=== PATIENT | female | born 1965 | race Caucasian/White ===

== ENCOUNTER 2025-01-26 01:25 | Emergency (ER) | payer BC ==
[~2025-01-26] VITALS: Ht 152.4 cm; Wt 63.2 kg
--- NOTE | 2025-01-26 01:44 | Physician Documentation ---
History of Present Illness General Chief Complaint: See Chief Complaint Stated Complaint: DYSTONIC REACTION Time Seen by MD: 01:44 Primary Medical Doctor: IGGY WU History of Present Illness Initial Comments The patient is a 59-year-old female who states 2 hours ago she started developing involuntary contractions of her upper extremities. Patient states she has recently started on Wegovy. The patient was given a IV fluid as well as a dose of Benadryl in the field she states her symptoms have improved. The patient denies any illicit drug use no recent fevers or chills. Medication Reconciliation Allergies: Coded Allergies: No Known Allergies (Unverified , 01/26/25) Past Medical History Past Medical History: Thyroid (unspecified) Past Surgical History: other Smoking: Non-Smoker Alcohol Use: Occasionally Review of Systems All Other Systems at this time: Reviewed and Negative Physical Exam Physical Exam Vital Signs: Temperature: 98.1, Source: Oral, Heart Rate: 99, Respiratory Rate: 18, BP: 114/73, Pulse Oximetry: 98, Weight: 63.180 Physical Exam VITALS: Reviewed and as above. GENERAL: Alert, no apparent distress. HEENT: Normocephalic, atraumatic, PERRL, EOMI, dry mucosa, no erythema RESPIRATORY: Lungs clear, normal breath sounds, no respiratory distress. CHEST: No accessory muscle use, no retractions CV: Regular rate, rhythm, no edema, no murmur, No: JVD GI: Soft, non-tender, bowels sounds present, no rebound, guarding, or rigidity BACK: No CVA tenderness, or swelling MUSCULOSKELETAL: No deformities, no edema SKIN: Warm and dry, no rash NEURO: Oriented x4, No motor or sensory deficit the patient is having myoclonic jerks of her upper extremities intermittently otherwise she is completely lucid and answering questions she is not lose any consciousness during these episodes PSYCH: Normal mood and affect, no agitation Progress Results/Orders Results/Orders Orders - OHLFS,LONG Hubbard MD Magnesium Sulf-Water 2g/50ml (Magnesium (01/26/25 01:50) Completed Orders - OHLLONG ESPARZA MD BMP (01/26/25 01:48) Cbc/Diff (01/26/25 01:48) MG (01/26/25 01:48) Normal Saline 1000ml (0.9% Sodium Chlori (01/26/25 01:50) Medications Received in ER Medications (Trade) Dose Ordered Sig/Josiah Route PRN Reason Start Time Stop Time Status Last Admin Dose Admin (0.9% sodium chloride (NS) 1000ml IV soln) 1,000 ml ONCE ONCE IVB 01/26/25 01:50 01/26/25 01:51 DC 01/26/25 01:51 1,000 ML Magnesium Sulfate 50 ml @ 25 mls/hr ONCE ONCE IV 01/26/25 01:50 01/26/25 03:49 01/26/25 01:56 25 MLS/HR Vital Signs 01/26/25 01:34 Temp 98.1 Pulse 99 Resp 18 B/P (MAP) 114/73 Pulse Ox 98 Laboratory Tests Test 01/26/25 01:43 White Blood Count 4.5 Red Blood Count 3.82 L Hemoglobin 12.1 Hematocrit 35.2 Mean Corpuscular Volume 92.1 Mean Corpuscular Hemoglobin 31.7 H Mean Corpuscular Hemoglobin Concent 34.4 Red Cell Distribution Width 13.2 Platelet Count 209 Mean Platelet Volume 8.8 Neutrophils (%) (Auto) 43.3 Lymphocytes (%) (Auto) 47.3 Monocytes (%) (Auto) 6.9 Eosinophils (%) (Auto) 1.6 Basophils (%) (Auto) 0.9 Neutrophils # (Auto) 2.0 Lymphocytes # (Auto) 2.1 Monocytes # (Auto) 0.3 Eosinophils # (Auto) 0.1 Basophils # (Auto) 0.0 CBC Comment Sodium Level 143 Potassium Level 3.9 Chloride Level 107 Carbon Dioxide Level 25.7 Anion Gap 10 Blood Urea Nitrogen 6 L Creatinine 0.56 Estimated GFR/1.73 m2 > 90 BUN/Creatinine Ratio 10.7 Glucose Level 105 H Calcium Level 8.9 Magnesium Level 2.2 Albumin 4.4 Chemistry Comments Departure Time of Disposition: 03:07 Disposition: 01 HOME / SELF CARE / HOMELESS Impression: Primary Impression: Twitching Discharge Instructions: Muscle Cramps and Spasms Referrals: NO PRIMARY CARE PROVIDER (PCP) LONG POWERS MD Jan 26, 2025 01:44
[2025-01-26] MEDS: normal saline 1000ML IV soln IVB ONE (01:51)
[2025-01-26] MEDS: magnesium sulf-water 2g/50mL 50 ML IV ONE (01:56)
[2025-01-26 02:07] LABS: MEAN PLATELET VOLUME 8.8 FL (7.4-10.4); RED CELL DISTRIBUTION WIDTH 13.2 % (11.5-14.5)
[2025-01-26 02:11] LABS: CREATININE 0.56 MG/DL (0.40-0.90); TOTAL CARBON DIOXIDE 25.7 MMOL/L (24-32)
[2025-01-26 02:12] LABS: eCRCL 77 ML/MIN; eGFR > 90 ML/MIN
[2025-01-26 03:27] VITALS: BP 128/70; PULSE 70; RESP 16; TEMP 97.8; O2SAT 99
== END 2025-01-26 03:31 | disposition home or self-care (01) ==
LOC: ER 01:26
DX: R25.3 Fasciculation (principal); Z72.89 Other problems related to lifestyle
CPT/HCPCS: 36415; 80048; 83735; 85025; 96365; 99284; J7030; 96366